=== PATIENT | female | born 1935 | race Caucasian/White ===

== ENCOUNTER 2016-12-31 17:16 | Emergency (ER) | payer MEDICARE ==
[~2016-12-31] VITALS: Ht 165.1 cm; Wt 68.2 kg
[~2016-12-31 17:16] MED LIST: ALLEGRA-D 2424 HOUR PO; AMLODIPINE10 MG PO; BACTROBAN2 % EX; CELEBREX100 M1 PO; FLEXERIL PO; FLONASE NASAL50 MCG; FLUARIX QUADRIV1 IN2 IM; GLUCO/CHOND2 OR; LIPITOR10 MG PO; LISINOP/HCTZ1 TAB PO; LOPRESSOR 550 MG/TAB PO; MEDDOSEPAK PO; MEDROL DOSEPAK4 MG PO; NAPROSYN500 MG PO; PLAVIX75 MG OR; PRILOSEC40 MG PO; SIMVASTATIN40 MG PO; TRAMADOL HCL50 MG PO; ZESTORETIC 20/11 TAB OR; ZOCOR40 MG OR; ZOFRAN ODT4 MG PO; [UNRECOGNIZED DRUG - OTHER] OR
[2016-12-31] MEDS ORDERED: METOPROL TAR25 MG PO (17:42)
[2016-12-31] MEDS ORDERED: OMEPRAZOLE10 MG PO (17:42)
[2016-12-31] MEDS ORDERED: ADVIL200 MG PO (17:43)
[2016-12-31 18:20] LABS: HEMATOCRIT 38.6 % (37.0-47.0); HEMOGLOBIN 12.6 g/dl (12.0-16.0); IMMATURE GRANULOCYTES 0.5 % (0.0-1.0); MEAN CELL VOLUME 83.5 fL CALC (80.0-100.0); MEAN CORPUSCULAR HGB 27.3 pG CALC (26.0-32.0); MEAN CORPUSCULAR HGB CONC 32.6 g/L CALC (32.0-36.0); NEUT# 7.15 thou/uL (2.00-7.15); RED BLOOD COUNT 4.62 mill/uL (4.20-5.60); RED CELL DISTRI WIDTH 14.6 % (11.5-15.5)
[2016-12-31] MEDS ORDERED: EC-NAPROSYN500 MG PO (18:35)
[2016-12-31] MEDS ORDERED: LORTAB 5-325 MG1 TAB PO (18:35)
[2016-12-31 18:36] LABS: ALBUMIN 4.3 g/dL (3.2-5.0); BILIRUBIN, TOTAL 0.8 mg/dL (0.0-1.4); CALCIUM 9.2 mg/dL (8.4-10.2); CREATININE 1.3 mg/dL (0.5-1.0); POTASSIUM 4.1 mmol/l (3.5-5.1); TOTAL PROTEIN 7.5 g/dL (6.3-8.2)
[2016-12-31 19:19] VITALS: BP 128/61
== END 2016-12-31 19:21 | disposition home or self-care (01) ==
LOC: ED 17:16
PROVIDERS: Emergency Medicine
DX: M25.512 Pain in left shoulder (principal); I16.0 Hypertensive urgency; I10 Essential (primary) hypertension; E78.5 Hyperlipidemia, unspecified; M19.90 Unspecified osteoarthritis, unspecified site

== ENCOUNTER 2017-04-09 15:42 | Observation (INO) | payer MEDICARE ==
[~2017-04-09] VITALS: Ht 165.1 cm; Wt 63.0 kg
[~2017-04-09 15:42] MED LIST changes: +ADVIL200 MG PO; +EC-NAPROSYN500 MG PO; +LORTAB 5-325 MG1 TAB PO; +METOPROL TAR25 MG PO; +OMEPRAZOLE10 MG PO
[2017-04-09 15:50] VITALS: BP 129/79
--- NOTE | 2017-04-09 15:50 | NUR ---
PT WAS A DIRECT ADMIT, VIA WC ACCOMPANIED BY STAFF.
--- NOTE | 2017-04-09 17:00 | NUR ---
ATTEMPTED X2 TO TRY AND START AN IV , ASKED RETAIL AIDE TO START.NEW IV SITE IN RAC #22 , CAME TO THE UNIT PT WAS BEING TAKEN TO XRAY. ASSESSMENT IS COMPLTED: PT C/O BEING CHILLED. PLACED ANOTHER BLANKET ON PT. LABS WERE DRAWN. LUNGS ARE CLEAR BILATERALLY. ABD IS SOFT CONTINUE TO OSBERVE AND MONITOR.
[2017-04-09 17:19] LABS: HEMATOCRIT 40.1 % (37.0-47.0); HEMOGLOBIN 13.1 g/dl (12.0-16.0); IMMATURE GRANULOCYTES 0.6 % (0.0-1.0); MEAN CELL VOLUME 84.2 fL CALC (80.0-100.0); MEAN CORPUSCULAR HGB 27.5 pG CALC (26.0-32.0); MEAN CORPUSCULAR HGB CONC 32.7 g/L CALC (32.0-36.0); NEUT# 14.54 thou/uL (2.00-7.15); RED BLOOD COUNT 4.76 mill/uL (4.20-5.60); RED CELL DISTRI WIDTH 15.3 % (11.5-15.5)
--- NOTE | 2017-04-09 18:00 | NUR ---
FAMILY IN THE ROOM. PT C/O NAUSEA GAVE MEDICATION ORDERED. IV SITE IS FREE FROM REDNESS OR EDEMA. FAMILY ALSO INQUIRED ABOUT ANXIETY MEDICATION LEFT A MESSAGE ON DR. THOMAS'S PHONE RE: ANXIETY MEDS.
[2017-04-09 18:16] LABS: CALCIUM 10.4 mg/dL (8.4-10.2); CREATININE 1.5 mg/dL (0.5-1.0); POTASSIUM 4.9 mmol/l (3.5-5.1)
--- NOTE | 2017-04-09 20:00 | NUR ---
BEDSIDE REPORT RECEIVED FROM LAUREANO MANCINI. PT RESTING IN BED WATCHING TV. DENIES PAIN CURRENTLY. RESPIRATIONS EVEN AND UNLABORED ON OXYGEN. STATES THAT ZOFRAN WAS EFFECTIVE FOR NAUSEA, BUT SHE STILL FEELS A LITTLE DIZZY. ALSO STATES THAT SHE HAS HAD SOME DEPRESSION RELATED TO HER CONTINUED MEDICATION ISSUED BEGINNING WHEN HER PACEMAKER WAS PLACED LAST MONTH. DR. THOMAS ORDERED XANAX PRN. PLAN OF CARE DISCUSSED. PT ENCOURAGED TO VERBALIZE CONCERNS. STATES UNDERSTANDING. SAFETY MEASURES IN PLACE. CALL LIGHT WITHIN REACH.
[2017-04-09 20:02] VITALS: BP 133/65
[2017-04-09 22:35] LABS: URINE BLOOD DIPSTICK NEGATIVE (NEGATIVE); URINE COLOR YELLOW; URINE GLUCOSE - DIPSTICK NEGATIVE (NEGATIVE); URINE KETONE 15 mg/dL (NEGATIVE); URINE NITRITE - DIPSTICK NEGATIVE (Negative); URINE PROTEIN - DIPSTICK 30 mg/dL (NEG-TRACE); URINE SPECIFIC GRAVITY >=1.030
[2017-04-09 22:36] LABS: URINE BILIRUBIN - DIPSTICK SMALL (NEGATIVE); URINE CLARITY CLEAR; URINE LEUK ESTERASE SMALL (NEGATIVE)
[2017-04-09 22:47] LABS: URINE SQUAMOUS EPITHELIAL CELL FEW EPI/hpf (0-FEW)
--- NOTE | 2017-04-10 00:55 | NUR ---
PT IS ASLEEP AT THIS TIME WITH NO SIGNS OF DISTRESS. RESPIRATIONS EVEN AND UNLABORED ON OXYGEN. IV FLUIDS INFUSING WITHOUT DIFFICULTY. SAFETY MEASURES IN PLACE. CALL LIGHT WITHIN REACH.
--- NOTE | 2017-04-10 04:40 | NUR ---
PT ASLEEP AT THIS TIME. AWAKENS TO VERBAL AND TACTILE STIMULI. ENCOURAGED TO GET UP TO VOID. DENIES PAIN CURRENTLY. RESPIRATIONS EVEN AND UNLABORED. SAFETY MEASURES IN PLACE. CALL LIGHT WITHIN REACH.
[2017-04-10 05:00] VITALS: BP 120/63
[2017-04-10 07:31] LABS: ALBUMIN 3.1 g/dL (3.2-5.0); BILIRUBIN, TOTAL 0.7 mg/dL (0.0-1.4); CALCIUM 8.7 mg/dL (8.4-10.2); CREATININE 1.4 mg/dL (0.5-1.0); POTASSIUM 3.5 mmol/l (3.5-5.1); TOTAL PROTEIN 5.6 g/dL (6.3-8.2)
[2017-04-10 08:22] VITALS: BP 125/54
--- NOTE | 2017-04-10 08:22 | NUR ---
ASSESSMENT IS COMPLETED: PT IS RELAXING IN BED WITH NO DISTRESS NOTED. IV SITE IS FREE FROM REDNESS OR EDEMA. PT LOOKS BETTER THIS AM. HAD A GOOD NIGHTS REST. CONTINUE TO OSBERVE AND MONITOR.
--- NOTE | 2017-04-10 09:15 | NUR ---
IN TO VISIT WITH PT.
[2017-04-10 09:26] LABS: HEMOGLOBIN 10.8 g/dl (12.0-16.0); IMMATURE GRANULOCYTES 0.7 % (0.0-1.0); MEAN CORPUSCULAR HGB CONC 31.8 g/L CALC (32.0-36.0); NEUT# 8.62 thou/uL (2.00-7.15); RED CELL DISTRI WIDTH 15.7 % (11.5-15.5)
--- NOTE | 2017-04-10 12:30 | NUR ---
PT IS RELAXING IN BED WITH NO DISTRESS NOTED. IV SITE IS FREE FROM REDNESS. CONTINUE TO OBSERVE AND MONITOR
[2017-04-10 16:11] VITALS: BP 123/54
--- NOTE | 2017-04-10 18:49 | NUR ---
PT IS RELAXING IN BED, FINALLY GOT UP TO THE BSC WITH STAND BY ASSIST. ABLE TO VOID 700CC DARK YELLOW UA
--- NOTE | 2017-04-10 20:00 | NUR ---
BEDSIDE REPORT RECEIVED FROM LAUREANO MANCINI. PT RESTING IN BED WITH EYES OPEN. C/O SOME PAIN TO HER LEFT SHOULDER; STATES THAT MEDICATION IS SOMEWHAT EFFECITVE. HEAT PACK APPLIED AND SHE STATES THAT IT IS HELPING. RESPIRATIONS EVEN AND UNLABORED ON OXYGEN. STILL AWAITING STOOL SAMPLE. PLAN OF CARE REVIEWED. PT ENCOULRAGED TO VERBALIZE CONCERNS. STATES UNDERSTANDING. SAFETY MEASURESIN PLACE. CALL LIGHT WITHIN REACH.
[2017-04-10 20:15] VITALS: BP 112/52
--- NOTE | 2017-04-11 00:16 | NUR ---
PT ASLEEP AT THIS TIME WITH NO SIGNS OF DISTRSS. RESPIRATIONS EVEN AND UNLABORED. XANAX GIVEN AT BEDTIME FOR ANXIETY WITH GOOD EFFECT. SAFETY MEASURES IN PLACE. CALL LIGHT WITHIN REACH.
[2017-04-11 04:35] VITALS: BP 120/64
--- NOTE | 2017-04-11 04:57 | NUR ---
PT ASSISTED TO BSC THIS MORNING TO VOID. HAS SLEPT THROUGH THE NIGHT WITH NO FUTHER C/O PAIN OR DISCOMFORT. RESPIRATIONS EVEN AND UNLABORED ON ROOM AIR. OXYGEN TAKEN OFF AND PATIENT IS TOLERATING WELL. PT HAS NO REQUESTS AT THIS TIME. SAFETY MEASURES IN PLACE. CALL LIGHT WITHIN REACH.
[2017-04-11 05:49] LABS: HEMATOCRIT 30.9 % (37.0-47.0); HEMOGLOBIN 10.1 g/dl (12.0-16.0); IMMATURE GRANULOCYTES 1.8 % (0.0-1.0); MEAN CELL VOLUME 85.1 fL CALC (80.0-100.0); MEAN CORPUSCULAR HGB 27.8 pG CALC (26.0-32.0); MEAN CORPUSCULAR HGB CONC 32.7 g/L CALC (32.0-36.0); NEUT# 7.88 thou/uL (2.00-7.15); RED BLOOD COUNT 3.63 mill/uL (4.20-5.60); RED CELL DISTRI WIDTH 15.6 % (11.5-15.5)
[2017-04-11 06:04] LABS: ALBUMIN 2.5 g/dL (3.2-5.0); BILIRUBIN, TOTAL 0.6 mg/dL (0.0-1.4); CREATININE 1.1 mg/dL (0.5-1.0); POTASSIUM 3.7 mmol/l (3.5-5.1); TOTAL PROTEIN 4.8 g/dL (6.3-8.2)
--- NOTE | 2017-04-11 08:35 | NUR ---
PT WAS RECEIVING A BREATHING TX.
[2017-04-11 09:10] VITALS: BP 133/53
--- NOTE | 2017-04-11 09:10 | NUR ---
PT FINISHED A BREATHING TX, IV SITE IS FREE FROM REDNESS OR EDEMA. BREATH SOUNDS ARE CLEAR,BILATERALLY, NO C/O SOB, HR IS REG, PULSES ARE STRONG X4,ABD IS SOFT WITH ACTIVE BS.
--- NOTE | 2017-04-11 10:00 | NUR ---
PT BECAME SOB ON EXERTION AFTER THE SHOWER. ABLE TO CALM PT DOWN WITH O2.
--- NOTE | 2017-04-11 12:15 | NUR ---
PT IS SITTING UP IN THE CHAIR. EATING LUMCH. NO DISTRESS NOTED. IV SITE IS FREE FROM REDNESS OR EDEMA.
[2017-04-11 16:08] VITALS: BP 110/58
--- NOTE | 2017-04-11 16:15 | NUR ---
PT HAS BEEN RESTING IN BED WITH NO DISTRESS NOTED. IV SITE IS FREE FROM REDNESS OR EDEMA. CONTINUE TO OSBERVE AND MONITOR.
[2017-04-11 19:00] VITALS: BP 123/61
--- NOTE | 2017-04-11 19:40 | NUR ---
RESP EVEN AND UNLABORED WITH O2 IN PLACE. NO DISTRESS NOTED. LUNGS CLEAR BILAT. ABD SOFT WITH ACTIVE BOWEL SOUNDS. PEDAL PULSES PALPATED BILAT. IV RAC PATENT; FLUSHED WITHOUT DIFFICULTY. PT REPOSITIONED FOR COMFORT. PT DENIES ANY PAIN OR DISCOMFORT. PT ENCOURAGED TO VERBALIZE CONCERNS. FREQUENT ROUNDS MADE. CALL LIGHT WITHIN REACH.
--- NOTE | 2017-04-12 00:04 | NUR ---
PT DENIES ANY PAIN OR DISCOMFORT. PT ENCOURAGED TO CONTINUE DRINKING FLUIDS. RESP EVEN AND UNLABORED WITH O2 IN PLACE. NO DISTRESS NOTED. CALL LIGHT WITHIN REACH.
--- NOTE | 2017-04-12 04:05 | NUR ---
RT IN ROOM WITH PT FOR TREATMENT. PT DENIES ANY PAIN OR DISCOMFORT. RESP EVEN AND UNLABORED WITH O2 IN PLACE. NO DISTRESS NOTED. ASSESSMENT UNCHANGED. SAFETY PRECAUTIONS REINFORCED. CALL LIGHT WITHIN REACH.
[2017-04-12 04:56] VITALS: BP 126/64
[2017-04-12 06:02] LABS: HEMATOCRIT 30.8 % (37.0-47.0); IMMATURE GRANULOCYTES 0.6 % (0.0-1.0); MEAN CELL VOLUME 84.8 fL CALC (80.0-100.0); MEAN CORPUSCULAR HGB 27.5 pG CALC (26.0-32.0); MEAN CORPUSCULAR HGB CONC 32.5 g/L CALC (32.0-36.0); NEUT# 9.42 thou/uL (2.00-7.15); RED BLOOD COUNT 3.63 mill/uL (4.20-5.60); RED CELL DISTRI WIDTH 15.9 % (11.5-15.5)
[2017-04-12 06:25] LABS: ANION GAP 14 (6-22 (CALC)); BUN 9 mg/dL (8-23); BUN/CREATININE RATIO 9 (12-20 (CALC)); CALCIUM 8.3 mg/dL (8.4-10.2); CARBON DIOXIDE 23 mmol/l (22-30); CHLORIDE 104 mmol/l (95-108); GFR 53 ML/MIN (>=60 (CALC)); GFR FOR AFR.AMER. > 60 ML/MIN (>=60 (CALC)); GLUCOSE 119 mg/dL (82-115); POTASSIUM 3.4 mmol/l (3.5-5.1); SODIUM 137 mmol/l (137-146)
[2017-04-12 08:10] VITALS: BP 166/76
--- NOTE | 2017-04-12 08:10 | NUR ---
ASSESSMENT IS COMPLETED: IV SITE IS FREE FROM REDNESS OR EDEMA. PT GETS SOB ON EXERTION. NO DISTRESS NOTED.
[2017-04-12] MEDS ORDERED: AMLODIPINE5 MG PO (08:22)
[2017-04-12] MEDS ORDERED: DIGOXIN0.125 MG PO (08:24)
[2017-04-12] MEDS ORDERED: LIPITOR80 M1 PO (08:35)
--- NOTE | 2017-04-12 09:00 | NUR ---
WALKED PT UP AND DOWN THE MO FOR O2 CHECK. SATS 95-97 WHEN WALKING, WHEN STOPPED DROP TO 90 THEN RIGHT BACK UP AGAIN. ABG'S COMPLETED.
--- NOTE | 2017-04-12 10:52 | NUR ---
SPOKE WITH DR. THOMAS RE: PT O2 WILL CHECK ON HER FOR LUNCH THEN SEND HOME.
--- NOTE | 2017-04-12 11:21 | NUR ---
SPOKEW ITH SON RE: ANXIETY.WILL SPEAK WITH RE: MEDCIATION FOR ANXIETY AT HOME/.
--- NOTE | 2017-04-12 12:15 | NUR ---
PT IS SITTING UP IN THE CHAIR VISITING WITH FAMILY. NO DISTRESS NOTED IV SITE IS FREE FROM REDNESS OR EDEMA. O2 WAS CHECKED ,PT BECOMES SOB ON EXERTION. THEN CALMS DOWN.
--- NOTE | 2017-04-12 13:18 | NUR ---
SPOKE WITH DR. THOMAS RE; PT EATING LUNCH WELL. ALSO FAMILY WANTING SOMETHING FOR ANXIETY,
[2017-04-12] MEDS ORDERED: ALPRAZOLAM0.25 MG PO (15:29)
--- NOTE | 2017-04-12 15:45 | NUR ---
DISCHARGE INSTRUCTIONS GIVEN TO FAMILY AND INFORMED TO STOP BY THE OFFICE TO HAVE THE SCRIPT SIGNED. Discharge instructions given. Patient verbalizes understanding of same. Discharged in stable condition via Wheelchair to Home with family. All belongings sent with pt.
== END 2017-04-12 15:46 | disposition home or self-care (01) ==
LOC: MS2 15:42
PROVIDERS: ADMIT Internal Medicine Geriatric Medicine; ATTEND Internal Medicine Geriatric Medicine
DX: E86.0 Dehydration (principal); R11.2 Nausea with vomiting, unspecified; R53.1 Weakness; I25.10 Atherosclerotic heart disease of native coronary artery without angina pectoris; F41.9 Anxiety disorder, unspecified; I10 Essential (primary) hypertension; K21.9 Gastro-esophageal reflux disease without esophagitis; K27.9 Peptic ulcer, site unspecified, unspecified as acute or chronic, without hemorrhage or perforation; M19.90 Unspecified osteoarthritis, unspecified site; Z95.0 Presence of cardiac pacemaker; J98.8 Other specified respiratory disorders
CPT/HCPCS: S0164

== ENCOUNTER 2017-09-01 15:39 | Inpatient (IN) | payer MEDICARE ==
[~2017-09-01] VITALS: Ht 165.1 cm; Wt 56.8 kg
[~2017-09-01 15:39] MED LIST changes: +ALPRAZOLAM0.25 MG PO; +AMLODIPINE5 MG PO; +DIGOXIN0.125 MG PO; +LIPITOR80 M1 PO
[2017-09-01 16:39] LABS: HEMATOCRIT 34.4 % (37.0-47.0); HEMOGLOBIN 11.2 g/dl (12.0-16.0); IMMATURE GRANULOCYTES 1.1 % (0.0-1.0); MEAN CELL VOLUME 77.7 fL CALC (80.0-100.0); MEAN CORPUSCULAR HGB 25.3 pG CALC (26.0-32.0); MEAN CORPUSCULAR HGB CONC 32.6 g/L CALC (32.0-36.0); PLATELET COUNT 186 thou/uL (130-400); RED BLOOD COUNT 4.43 mill/uL (4.20-5.60); RED CELL DISTRI WIDTH 15.9 % (11.5-15.5)
[2017-09-01 16:55] LABS: ALBUMIN 3.3 g/dL (3.2-5.0); BILIRUBIN, TOTAL 0.6 mg/dL (0.0-1.4); CREATININE 1.3 mg/dL (0.5-1.0); POTASSIUM 4.4 mmol/l (3.5-5.1); TOTAL PROTEIN 6.9 g/dL (6.3-8.2)
[2017-09-01 17:13] LABS: MANUAL DIFFERENTIAL YES
[2017-09-01 17:18] LABS: BAND 8 % (0-8)
[2017-09-01] MEDS ORDERED: METOPROLOL TART25 MG PO (17:38)
[2017-09-01] MEDS ORDERED: RANITIDINE150 MG PO (17:39)
[2017-09-01] MEDS ORDERED: TRAMADOL HCL50 MG PO (17:41)
[2017-09-01] MEDS ORDERED: ASPIRIN ADULT L81 M2 PO (17:41)
[2017-09-01 19:14] LABS: URINE BILIRUBIN - DIPSTICK NEGATIVE (NEGATIVE); URINE BLOOD DIPSTICK TRACE-INTACT (NEGATIVE); URINE COLOR YELLOW; URINE GLUCOSE - DIPSTICK NEGATIVE (NEGATIVE); URINE KETONE NEGATIVE (NEGATIVE); URINE LEUK ESTERASE TRACE (NEGATIVE); URINE NITRITE - DIPSTICK NEGATIVE (Negative); URINE PH 5.5 (4.5-8.0); URINE PROTEIN - DIPSTICK TRACE mg/dL (NEG-TRACE); URINE SPECIFIC GRAVITY >=1.030; URINE UROBILINOGEN - DIPSTICK 0.2 E.U./dL (0.2)
[2017-09-01 19:15] LABS: URINE CLARITY CLEAR
[2017-09-01 20:20] VITALS: BP 134/62
[2017-09-01 20:45] VITALS: BP 105/57
[2017-09-01 21:00] VITALS: BP 110/54
[2017-09-01 21:15] VITALS: BP 111/52
[2017-09-01 22:00] VITALS: BP 101/53
[2017-09-01 23:00] VITALS: BP 97/49
[2017-09-02] VITALS (9 sets, daily range): BP systolic 84–136; BP diastolic 42–67
== END 2017-09-02 17:35 | DRG 206 ==
LOC: ED 15:39 → ED-I 18:50 → ED 19:19 → MS2 19:20 → ICU 19:20
PROVIDERS: Emergency Medicine; ADMIT Internal Medicine Geriatric Medicine; ATTEND Internal Medicine Geriatric Medicine
DX: R91.1 Solitary pulmonary nodule (principal); J98.11 Atelectasis; R00.0 Tachycardia, unspecified; H91.92 Unspecified hearing loss, left ear; I10 Essential (primary) hypertension; I25.10 Atherosclerotic heart disease of native coronary artery without angina pectoris; K21.9 Gastro-esophageal reflux disease without esophagitis; K27.9 Peptic ulcer, site unspecified, unspecified as acute or chronic, without hemorrhage or perforation; M19.90 Unspecified osteoarthritis, unspecified site; F41.1 Generalized anxiety disorder; Z95.0 Presence of cardiac pacemaker
CPT/HCPCS: J1956